=== PATIENT | male | born 1985 | race Caucasian/White ===

== ENCOUNTER 2025-05-05 23:36 | Emergency (ER) | payer OTHER, SELFPAY ==
[2025-05-05 23:59] VITALS: BP 122/75; PULSE 78; RESP 16; TEMP 36.6; O2SAT 98; BMI 32.2
[2025-05-06] VITALS (8 sets, daily range): BP systolic 103–109; BP diastolic 63–70; PULSE 64–77; RESP 16; O2SAT 96–98
[2025-05-06 00:14] LABS: Appearance Urine Clear (Clear)
--- NOTE | 2025-05-06 00:17 | CRLHL7_ITS ---
For Patients: As a result of the Century Cures Act, medical imaging exams and procedure reports are released immediately into your electronic medical record. You may view this report before your referring provider. If you have questions, please contact your health care provider. INDICATION: Lower abdominal pain, right-sided. TECHNIQUE: CT abdomen and pelvis acquired with 81 cc Isovue 370 IV contrast. COMPARISON: None. FINDINGS: Lower chest: Mild subsegmental atelectasis. Mild bilateral gynecomastia. Liver: Possible steatosis, but not well assessed on this post-contrast exam. No suspicious masses. Gallbladder and bile ducts: Cholecystectomy. 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 Pancreas: Unremarkable. No mass or inflammation. Spleen: Unremarkable. Normal in size. No masses. Adrenal glands: Unremarkable. No nodules. Kidneys: Unremarkable. No suspicious masses, stones, or hydronephrosis. GI tract: Small bowel anastomoses. Normal in caliber. No sign of mass or inflammation. Appendectomy. Vasculature: Abdominal aorta is normal in caliber. Mesenteric arteries are patent. Lymph nodes: No pathologic lymphadenopathy. Peritoneum/Abdominal Wall: Unremarkable. No sign of mass or infiltration. No free air or significant free fluid. Pelvis: Partially decompressed bladder limits evaluation. Prostate is unremarkable. Bones: Unremarkable for age. IMPRESSION: No definite acute findings to explain the patient`s symptoms. Please note that all CT scans at this facility use dose modulation, iterative reconstruction, and/or weight-based dosing when appropriate to reduce radiation dose to as low as reasonably achievable. Dictated by Chano Washington MD @ 05/06/2025 1:09:23 AM (Electronically Signed)
[2025-05-06 00:21] LABS: Cannabinoid Screen Urine Negative (Negative); Methamphetamines Screen Urine Negative (Negative); Tricyclic Antidepressant Urine Negative (Negative)
[2025-05-06] MEDS: MORPHINE 4 MG/ML INJ IVP (00:21)
[2025-05-06] MEDS: ONDANSETRON 2 MG/ML inj 4 MG IVP (00:21)
[2025-05-06 00:25] LABS: Hematocrit 45.1 % (37.0-53.0); Hemoglobin* 15.3 gm/dL (13.5-17.5); Immature Granulocytes Abs Auto 0.09 K/uL (0.00-0.30); Immature Granulocytes Pct Auto 1.0 %; Lactate Sepsis w/Reflex* 1.0 mmol/L (0.5-1.9); Lymphocytes Absolute Auto 3.71 K/uL (0.90-2.90); Mean Corpuscular HGB Conc 34 gm/dL (32-36); Mean Corpuscular Hemoglobin 28 pg (26-34); Mean Corpuscular Volume 81 fL (80-100); RDW Coefficient of Variation % 12.9 % (11.5-15.5); Red Blood Count 5.54 m/uL (4.30-5.90); White Blood Count* 9.08 K/uL (4.50-11.00)
--- NOTE | 2025-05-06 00:26 | ED_ITS ---
HPI - General Adult General Chief complaint: Abdominal Pain Stated complaint: lower right side abdominal pain Time Seen by Provider: 05/05/25 23:57 Source: patient Mode of arrival: ambulatory Limitations: no limitations History of Present Illness HPI narrative: 40-year-old male presents to the emergency department for evaluation of right lower quadrant abdominal pain for the past 3 days. Initially was intermittent, now becoming more constant. Initially would come in sharp waves, now more constant and still sharp. Pain does not radiate. Normal urination, normal bowel movements, last 1 was earlier today. Reports using ibuprofen 400 mg every 4 hours with some mild improvement in symptoms. Has not tried Tylenol. No trauma or injury. No nausea or vomiting, no dysuria. No bloody stools. Does have a notable prior history of abdominal surgeries. Reports uncomplicated cholecystectomy but he also had some sort of a bowel obstruction at age 16 and it sounds like he underwent a partial bowel resection. Reports that he woke up with a tube in his nose and was hospitalized for ?like a month. We will course do not have records on this. 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 Reports that he is from [place]. Denies alcohol or drug use. No history of pancreatitis or other chronic abdominal conditions. Reports normal appetite. Denies prior history of similar symptoms. ROS is notable for the abdominal symptoms only, otherwise denies times 12 systems. Past medical history notable for hyperlipidemia, was previously prescribed Crestor which he is no longer taking. Remainder of history is only notable for the abdominal surgeries as above but he also had an uncomplicated arm fracture as a preschooler. No other long-term health problems. No bleeding or blood clotting disorders, no anesthesia complications. Reports allergy to Toradol which apparently caused hives when he was 16 but as noted he does tolerate ibuprofen. Also reports a reaction to Reglan which sounds like a side effect rather than an allergy. Does use tobacco products. Related Data Home Medications ?Medication ?Instructions ?Recorded ?Confirmed No Known Home Medications 05/06/2512/26 Allergies Allergy/AdvReac Type Severity Reaction Status Date / Time metoclopramide (From Reglan) Allergy Unknown Rash Verified 05/06/25 00:02 ketorolac (From Toradol) Allergy Hives Verified 05/06/25 00:02 [facility] Social History Smoking Status: Current every day smoker What tobacco products do you use: cigarettes Smoking packs per day: 0.5 Smoking cigarettes per day: 10.0 Do you use any of these nicotine containing products: Vaping Products Second hand tobacco smoke exposure: No How often do you have a drink containing alcohol: never AUDIT-C Alcohol total score: 0 Non-prescribed substance use: denies use Exam Const: Vital Signs, click to edit/add: Vital Signs - 24 hr 05/05/25 23:59 Temperature 97.9 F Pulse Rate [Pulse Oximeter] 78 Respiratory Rate 16 Blood Pressure [Ri ght Upper Arm] 122/75 Pulse Oximetry 98 Oxygen Delivery Me thod Room Air Documenting provider has reviewed patient's vital signs: yes Common normals: alert Other: Mild distress due to pain. But answers questions appropriately. HENMT: Common normals: normocephalic and moist oral mucous membranes Head and scalp: normocephalic Other: Poor oral hygiene but no ulcerations or broken teeth. Skin of the face has both seborrheic dermatitis but also evidence of psoriasis plaques, also present on the scalp. Eye: Common normals: conjunctivae normal General eye: normal appearance of both eyes Conjunctiva: conjunctiva(e) normal Neck & C-Spine: Common normals: full ROM and no lymphadenopathy Resp: Common normals: normal respiratory effort, no use of accessory muscles and clear to auscultation bilaterally Effort & inspection: able to speak in complete sentences Auscultation: clear to auscultation bilaterally Cardio: Common normals: regular rate, regular rhythm, S1 normal heart sound, S2 normal heart sound and no murmurs Rate: regular rate Rhythm: regular rhythm Heart sounds: S1 normal and S2 normal GI: Other: There are a few laparoscopic scars but I would have expected larger incisions with a history of a partial bowel resection. Again, I do not have the notes on this. Abdomen seems nondistended bowel sounds little hyperactive throughout. He is tender to palpation everywhere, it does localize a little more towards the right lower quadrant but difficult exam, pain does seem a little out of proportion. No obvious mass or hernia. : Common normals: no CVA tenderness Bladder/kidney exam: no CVA tenderness Back & Pelvis: Common normals: no CVA tenderness and thoracic and lumbar spine normal to inspection Extremity: Common normals: normal to inspection and normal capillary refill General: normal exam except as noted Neuro: Common normals: moves all extremities Sensorium/orientation: alert Speech: speech normal Psych: Appearance: grossly normal Attitude: engaged Activity/motor behavior: appropriate eye contact Attention/concentration: attention grossly intact Memory/cognition: memory grossly intact Insight: insight good J udgement: judgment good Skin: Narrative: Multiple plaques of psoriasis, no signs of secondary infection. Course Course ED Course: 40-year-old male with right lower quadrant abdominal pain, worsening in nature, nontraumatic. Differential diagnosis including appendicitis, kidney stone, bowel obstruction, colitis, constipation, musculoskeletal etiology, referred pain, pancreatitis, viral etiology, colitis, amongst many others. Will place peripheral IV, give 4 mg of IV morphine due to Toradol allergy, 4 mg of Zofran. Typical intra-abdominal labs and CT of the abdomen and pelvis. Await findings. Reevaluation(s) Time of Reevaluation #1: 01:19 Reevaluation #1: Inform patient of all normal results. Suspect that his pain could be from some gas or abdominal cramping from a food that has not agreed with him well but there is no sign of major medical or surgical emergency. Counseled patient on use of [id number] Tylenol and ibuprofen as needed for pain. Offered a prescription anti-inflammatory medication which he declines for now. Will be discharged once the morphine has worn off. Alarm symptoms were reviewed that would warrant ED presentation. He verbalizes understanding and agreement. Vital Signs Vital signs: Initial Vital Signs Temperature 97.9 F 05/05/25 23:59 Temperature Source Temporal Artery Scan 05/05/25 23:59 Pulse Rate 78 05/05/25 23:59 Respiratory Rate 16 05/05/25 23:59 Blood Pressure 122/75 05/05/25 23:59 Blood Pressure Mean 90 05/05/25 23:59 Blood Pressure Position Sitting 05/05/25 23:59 Pulse Oximetry 98 05/05/25 23:59 Oxygen Delivery Method Room Air 05/05/25 23:59 Vital Signs Temperature 97.9 F 05/05/25 23:59 Pulse Rate 78 05/05/25 23:59 Respiratory Rate 16 05/05/25 23:59 Blood Pressure 122/75 05/05/25 23:59 Pulse Oximetry 98 05/05/25 23:59 Oxygen Delivery Method Room Air 05/05/25 23:59 Temperature 97.9 F 05/05/25 23:59 Pulse Rate 78 05/05/25 23:59 Respiratory Rate 16 05/05/25 23:59 Blood Pressure 122/75 05/05/25 23:59 Pulse Oximetry 98 05/05/25 23:59 Oxygen Delivery Method Room Air 05/05/25 23:59 Medications Administered Medications: Discontinued Medications Generic Name Dose Route Start Last Admin Trade Name Nancy PRN Reason Stop Dose Admin Morphine Sulfate 4 mg 05/06/25 00:17 05/06/25 00:21 Morphine 4 Mg/Ml Inj IVP 05/06/25 00:18 4 mg ONCE ONE Administration Ondansetron HCl 4 mg 05/06/25 00:17 05/06/25 00:21 Ondansetron 2 Mg/Ml Inj IVP 05/06/25 00:18 4 mg ONCE ONE Administration Medical Decision Making Lab Data Lab results reviewed: Yes I reviewed the patient's lab results Lab results narrative: Labs all reassuring. Labs: Lab Results 05/06/25 05/06/25 Range/Units 00:20 Unknown WBC 9.08 (4.50-11.00) K/uL RBC 5.54 (4.30-5.90) m/uL Hgb 15.3 (13.5-17.5) gm/dL Hct 45.1 (37.0-53.0) % MCV 81 (80-100) fL MCH 28 (26-34) pg MCHC 34 (32-36) gm/dL RDW Coeff of Yamil 12.9 (11.5-15.5) % Plt Count 269 (140-440) K/uL Neut % (Auto) 50.4 (42.0-72.0) % Lymph % (Auto) 40.9 (20-44) % [facility] % (Auto) 6.4 (0.0-11.0) % Eos % (Auto) 1.2 (0.0-7.0) % Baso % (Auto) 0.1 (0.0-3.0) % Neut # (Auto) 4.58 (1.7-7.0) K/uL Lymph # (Auto) 3.71 H (0.90-2.90) K/uL [facility] # (Auto) 0.60 (0.00-0.90) K/UL Eos # (Auto) 0.11 (0.00-0.50) K/uL Baso # (Auto) 0.01 (0.00-0.30) K/uL Abs Immat Gran (auto) 0.09 (0.00-0.30) K/uL Imm/Tot Granulo (auto) 1.0 % Sodium 137 (135-149) mmol/L Potassium 3.8 (3.6-5.1) mmol/L Chloride 103 (96-114) mmol/L Carbon Dioxide 27 (20-32) mmol/L Anion Gap 7 (7-15) mEq/L BUN 20 (5-24) mg/dL Creatinine 0.8 (0.5-1.5) mg/dL Estimated Creat Clear 86.81 Estimated GFR 115 ml/min Glucose 96 (60-115) mg/dL Lactate 1.0 (0.5-1.9) mmol/L Calcium 9.3 (8.4-10.6) mg/dL Total Bilirubin 0.4 (0.1-1.5) mg/dL AST 24 (12-35) U/L ALT 20 (4-50) U/L Alkaline Phosphatase 62 (40-150) U/L C-Reactive Protein < 0.5 L (0.5-1.0) mg/dL Total Protein 7.8 (6.0-8.3) g/dL Albumin 4.6 (3.3-5.0) g/dL Lipase 89 (23-300) U/L Urine Color Yellow (Yellow) Urine Appearance Clear (Clear) Urine pH 6.0 (5.0-8.5) Ur Specific Gibson >= 1.030 (1.000-1.030) Urine Protein Trace A (Negative) Urine Glucose (UA) Negative (Negative) Urine Ketones Negative (Negative) Urine Blood Negative (Negative) Urine Nitrite Negative (Negative) Urine Bilirubin Negative (Negative) Urine Urobilinogen 0.2 (0.2-1.0) Ur Leukocyte Esterase Negative (Negative) Urine RBC 0-2 (0-2) Urine WBC 0-2 (0-5) Ur Squamous Epith Cells Few (None-Few) Urine Bacteria None (None) Urine Opiates Screen Negative (Negative) Ur Oxycodone Screen Negative (Negative) Urine Methadone Screen Negative (Negative) Ur Barbiturates Screen Negative (Negative) U Tricyclic Antidepress Negative (Negative) Ur Phencyclidine Scrn Negative (Negative) Ur Amphetamines Screen Negative (Negative) U Methamphetamines Scrn Negative (Negative) U Benzodiazepines Scrn Negative (Negative) Urine Cocaine Screen Negative (Negative) U Marijuana (THC) Screen Negative (Negative) Ur Drug Screen Comment See Note Imaging Data CT scan - abdomen: Attestation: I have reviewed the pertinent imaging results. My impression: Normal CT, gallbladder and appendix both appear to be surgically absent. Radiologist's impression: IMPRESSION: No definite acute findings to explain the patient`s symptoms. Please note that all CT scans at this facility use dose modulation, iterative reconstruction, and/or weight-based dosing when appropriate to reduce radiation dose to as low as reasonably achievable. Dictated by Chano Washington MD @ 05/06/2025 1:09:23 AM Discharge Plan Discharge Clinical Impression: Abdominal pain Patient Disposition: Home, Self-Care Condition: Stable Instructions: Abdominal Pain (ED) Additional Instructions: As we discussed, there are no serious causes seen for your abdominal pain today. Your CT scan looks pretty normal. There are no signs of appendicitis, kidney stones, bowel obstruction, inflammatory conditions, pancreatitis. All of your labs look great also. I suspect he may be having some gas pain or some food that you recently ate has disagreed with you causing abdominal cramping. But overall, no emergent conditions are found. Remember that the workup that I can do from an emergency room is a bit limited to only things that are emergent and harmful, if there is a low-grade chronic condition starting up, my tests would not detect that. This means that if you continue to have spells like this, you should follow-up with a primary care doctor who can run additional testing. If you start having large amounts of bloody vomit, bloody stools, very high fever or significant worsening of symptoms, you should be re-evaluated. For pain, I recommend Tylenol 1000 mg every 6 hours and or ibuprofen 600 mg every 6 hours. It is okay to use Imodium in the event of diarrhea or Tums for upper stomach upset. Activity Level: No Restrictions Discharge Diet: Regular Prescriptions: No Action No Known Home Medications Follow Up/Referrals: Provider,Not a Local [Primary Care Provider, Family Practice] Stand Alone Forms: [employer] Info Instructions
[2025-05-06 00:27] LABS: Slide Review Reflex No
[2025-05-06 00:28] LABS: Albumin* 4.6 g/dL (3.3-5.0); Chloride* 103 mmol/L (96-114)
[2025-05-06 00:29] LABS: Potassium* 3.8 mmol/L (3.6-5.1); Sodium* 137 mmol/L (135-149)
[2025-05-06 00:31] LABS: Alanine Aminotransferase* 20 U/L (4-50); Aspartate Amino Transferase* 24 U/L (12-35); Blood Urea Nitrogen* 20 mg/dL (5-24); Creatinine* 0.8 mg/dL (0.5-1.5); Est. Creatinine Clearance* 86.81; Estimated Glomerular Filt Rate 115 ml/min
[2025-05-06 00:32] LABS: Alkaline Phosphatase* 62 U/L (40-150); Anion Gap 7 mEq/L (7-15); Bilirubin Total* 0.4 mg/dL (0.1-1.5); Calcium* 9.3 mg/dL (8.4-10.6); Carbon Dioxide* 27 mmol/L (20-32); Glucose* 96 mg/dL (60-115); Total Protein* 7.8 g/dL (6.0-8.3)
--- OUTSIDE RECORDS SUMMARY | 2025-05-06 00:43 | XMS_ITS | Clinical Summary ---
Author Organization [facility] Address [address] [place] [address] Care Team Providers Care Diffuser Operator Name Role Phone File, No Rental Sales Representative On MD Primary Care Prov ider Allergies Active Allergy Reactions Criticality Noted Date Comments Ketorolac Rash Low 12/16/2024 Social History Tobacco Use Types Packs/Day Years Used Date Smoking Tobacco: Every Day Cigarettes Smokeless Tobacco: Never Tobacco Cessation:Ready to Q uit: Not Asked; Counseling Given: Not Answered Alcohol Use Standard Drinks/Week Comments Never 0 (1 standard drink = 0.6 oz pur e alcohol) Sex and Gender Information Value Date Recorded Sex Assigned at Not on file Legal Sex Male 2:00 PM CDT Gender Identity Not on file Sexual Orientation Not on file Last Filed Vital Signs Vital Sign Reading Time Taken Comments Blood Pressure 109/58 12/16/2024 4:30 PM CDT Pulse 73 12/16/2024 4:30 PM CDT Temperature 37 C (98.6 F) 12/16/2024 2:03 PM CDT Respiratory Rate 18 12/16/2024 4:30 PM CDT Oxygen Saturation 100% 12/16/2024 4:30 PM CDT Inhaled Oxygen Concentration - - Weight 68 kg (150 lb) 12/16/2024 2:03 PM CDT Height 170.2 cm (5' 7) 12/16/2024 2:03 PM CDT Body Mass Index 23.49 12/16/2024 2:03 PM CDT Plan of Treatment Health Maintenance Due Date Last Done Comments COVID-19 Vaccine (#1) 1990 DTap,Tdap,and Td Vaccines (1 - Tdap) 02/13/2004 Pneumococcal PCV/PPSV 0-49 Y RS/Low to High Risk (1 of 5 - PCV) 02/13/2004 Depression Screening 10/04/2024 Flu Vaccine (#1) 06/04/2025 RSV under 20 months Aged Out No longe r eligible based on patient's age to complete this topic Care Teams Diffuser Operator Relationship Specialty Start Date End Date File, No Rental Sales Representative On, [address] [place] [place] [place] [address] PCP - General Internal Medicine 12/16/24
== END 2025-05-06 01:30 | disposition home or self-care (01) ==
PROVIDERS: Emergency Provider Family Medicine
DX: R10.31 Right lower quadrant pain (principal)
CPT/HCPCS: 36415; 74177; 80053; 80306; 81001; 83605; 83690; 85025; 86140; 94761; 96374; 96375; 99284; J2270; J2405; Q9967